=== PATIENT | female | born 1955 | race Caucasian/White ===

== ENCOUNTER → 2016-05-21 | Outpatient (CLI) | payer BC ==
[~2016-05-21] MED LIST: BYSTOLIC PO; CALCIUM1 CAP PO; DEXILANT PO; DUO-KAPS1 CAP PO; FLEXERIL5 MG PO; GAVISCON500 MG PO; NORCO 325 MG-51 TAB PO; PRILOSEC 20MG20 MG PO; ZOLOFT 50MG50 MG PO; ZOLOFT25 MG PO
== END ==
LOC: MC.RAD 07:20
DX: Z12.31 Encounter for screening mammogram for malignant neoplasm of breast (principal)

== ENCOUNTER → 2017-05-03 | Outpatient (CLI) | payer BC | LOC: MC.RAD 07:40 | DX: Z12.31 Encounter for screening mammogram for malignant neoplasm of breast (principal) ==

== ENCOUNTER 2018-05-15 08:59 | Outpatient (CLI) | payer BC ==
[~2018-05-15] VITALS: Ht 175.3 cm; Wt 63.3 kg
[~2018-05-15 08:59] MED LIST changes: +CALCIUM 600MG+D1 TAB PO; -CALCIUM1 CAP PO; +ZOLOFT 100MG100 MG PO; -ZOLOFT 50MG50 MG PO
[2018-05-15 09:58] VITALS: BP 164/80; PULSE 55; TEMP 98.5
[2018-05-15] MEDS ORDERED: OSTEO-BI-FLEX 21 TAB PO (10:17)
[2018-05-15] MEDS ORDERED: MELAT3MGTAB PO (10:17)
[2018-05-15] MEDS ORDERED: FLONASEALLERGY NS (10:18)
[2018-05-15] MEDS ORDERED: TEMOVATE0.05% TP (10:19)
[2018-05-15] MEDS ORDERED: ATROVENT NASAL15 ML NS (10:19)
[2018-05-15] MEDS ORDERED: ATIVAN 0.50.5 MG/TAB PO (10:20)
--- NOTE | 2018-05-15 10:32 | NUR ---
Pt to procedure,report to FELICIANO Correa.
[2018-05-15 11:54] VITALS: BP 148/87; PULSE 56
[2018-05-15 12:15] VITALS: BP 137/81; PULSE 59
[2018-05-15 12:45] VITALS: BP 135/74; PULSE 55
--- NOTE | 2018-05-15 13:14 | NUR ---
Discharge instructions given to pt.Pt verbalizes understanding.INT removed,catheter tip intact.Pt escorted out via wheelchair by this nurse.
== END 2018-05-15 13:16 | disposition home or self-care (01) ==
LOC: COL.CAR 08:59
DX: R55 Syncope and collapse (principal); Z88.8 Allergy status to other drugs, medicaments and biological substances; Z88.3 Allergy status to other anti-infective agents; Z87.820 Personal history of traumatic brain injury

== ENCOUNTER → 2018-05-18 | Outpatient (CLI) | payer BC ==
[~2018-05-18] MED LIST changes: +ATIVAN 0.50.5 MG/TAB PO; +ATROVENT NASAL15 ML NS; +FLONASEALLERGY NS; +MELAT3MGTAB PO; +OSTEO-BI-FLEX 21 TAB PO; +TEMOVATE0.05% TP
== END ==
LOC: MC.RAD 16:35
DX: Z12.31 Encounter for screening mammogram for malignant neoplasm of breast (principal)

== ENCOUNTER 2019-01-31 08:49 | Emergency (ER) | payer MEDICARE, OTHER ==
[2019-01-31 09:34] LABS: BASO % 0.3 % (0.0-2.0); EOS % 0.6 % (0-4.0); GRAN # 3.3 (1.4-6.5); GRAN % 53.4 % (42.2-75.2); HEMATOCRIT 42.3 % (37.0-47.0); HEMOGLOBIN 13.9 g/dl (12.5-16.0); LYMPH # 2.3 (1.2-3.4); MEAN CELL VOLUME 98 fl (80.0-100.0); MEAN CORPUSCULAR HEMOGLOBIN 32 pg (27.0-31.0); MEAN CORPUSCULAR HGB CONC 33 g/dl (33.0-37.0); MEAN PLATELET VOLUME 11.1 fl (7.4-10.4); MONO # 0.5 (0.1-0.6); MONO % 8.5 % (1.7-9.3); PLATELET COUNT 195 K/mm3 (130-400); RED BLOOD COUNT 4.34 M/mm3 (4.10-5.30); REDCELL DISTRIBUTION WIDTH-CV 12.5 % (11.5-14.5)
[2019-01-31 09:39] LABS: ALANINE AMINOTRANSFERASE 18 U/L (9-52); ALBUMIN 4.7 gm/dL (3.5-5.0); ALKALINE PHOSPHATASE 76 U/L (50-136); ANION GAP 11 mmol/L (7-16); AST,SGOT 41 U/L (15-37); BILIRUBIN,TOTAL 0.2 mg/dL (0.0-1.0); BLOOD UREA NITROGEN 27 mg/dL (7-17); CALCIUM 9.9 mg/dL (8.4-10.2); CARBON DIOXIDE 30 mmol/L (22-30); CHLORIDE 100 mmol/L (98-107); CREATININE, serum 0.62 (0.52-1.25); GLUCOSE 90 mg/dL (74-106); LIPASE 155 U/L (23-300); POTASSIUM 4.3 mmol/L (3.4-5.0); SODIUM 141 mmol/L (137-145); TOTAL PROTEIN 8.9 gm/dL (6.4-8.2)
[2019-01-31 10:02] LABS: TROPONIN-I < 0.012 ng/mL (0.000-0.035)
[2019-01-31 10:15] LABS: COLLECTION METHOD CLEAN CATCH
[2019-01-31 10:21] LABS: PH 7 (5-8); SQUAMOUS EPITHELIAL None Seen /hpf; URINE APPEARANCE Clear; URINE BACTERIA None Seen /hpf; URINE BILIRUBIN Negative (NEGATIVE); URINE BLOOD Negative (NEGATIVE); URINE COLOR Straw; URINE GLUCOSE Negative (NEGATIVE); URINE KETONE Negative (NEGATIVE); URINE LEUKOCYTE ESTERASE Negative (NEGATIVE); URINE NITRATE Negative (NEGATIVE); URINE PROTEIN(semi-quant) Negative (NEGATIVE); URINE RBC 0-2 /hpf; URINE UROBILINOGEN Negative (NEGATIVE)
[2019-01-31 13:41] VITALS: BP 138/71; PULSE 57; TEMP 98.4
== END 2019-01-31 13:42 | disposition home or self-care (01) ==
LOC: COL.ER 08:49
PROVIDERS: Emergency Medicine
DX: I10 Essential (primary) hypertension (principal); R53.81 Other malaise
CPT/HCPCS: J7030; Q9967

== ENCOUNTER → 2019-05-29 | Outpatient (CLI) | payer MEDICARE, OTHER | LOC: MC.RAD 10:20 | DX: Z12.31 Encounter for screening mammogram for malignant neoplasm of breast (principal) ==

== ENCOUNTER → 2020-06-09 | Outpatient (CLI) | payer MEDICARE | LOC: MC.RAD 07:45 | DX: Z12.31 Encounter for screening mammogram for malignant neoplasm of breast (principal) ==

== ENCOUNTER → 2020-09-02 | Outpatient (CLI) | payer MEDICARE, OTHER | LOC: COL.LAB 11:44 | DX: Z00.00 Encounter for general adult medical examination without abnormal findings (principal); K58.9 Irritable bowel syndrome, unspecified ==

== ENCOUNTER → 2020-11-27 | Outpatient (CLI) | payer MEDICARE, OTHER | LOC: COL.RAD 07:45 | DX: Z90.710 Acquired absence of both cervix and uterus (principal); R10.2 Pelvic and perineal pain ==

== ENCOUNTER → 2021-06-26 | Outpatient (CLI) | payer MEDICARE, OTHER | LOC: MC.RAD 08:05 | DX: Z12.31 Encounter for screening mammogram for malignant neoplasm of breast (principal) ==

== ENCOUNTER 2022-06-15 14:14 | Observation (INO) | payer MEDICARE, OTHER ==
[~2022-06-15] VITALS: Ht 175.3 cm; Wt 60.9 kg
[2022-06-15 14:56] LABS: BASO % 0.3 % (0.0-2.0); EOS # 0.1 K/mm3 (0.0-0.7); EOS % 0.7 % (0.0-4.0); GRAN # 3.7 K/mm3 (1.4-6.5); GRAN % 55.3 % (42.2-75.2); HEMATOCRIT 39.6 % (37.0-47.0); HEMOGLOBIN 12.9 g/dl (12.5-16.0); LYMPH # 2.6 K/mm3 (1.2-3.4); LYMPH % 37.9 % (20.0-51.0); MEAN CELL VOLUME 96 fl (80.0-100.0); MEAN CORPUSCULAR HEMOGLOBIN 31 pg (27-31); MEAN CORPUSCULAR HGB CONC 33 g/dl (33.0-37.0); MEAN PLATELET VOLUME 11.1 fl (7.4-10.4); MONO # 0.4 K/mm3 (0.1-0.6); MONO % 5.5 % (1.7-9.3); PLATELET COUNT 207 K/mm3 (130-400); RED BLOOD COUNT 4.12 M/mm3 (4.10-5.30); REDCELL DISTRIBUTION WIDTH-CV 12.2 % (11.5-14.5)
[2022-06-15 15:14] LABS: ALANINE AMINOTRANSFERASE 21 U/L (0-55); ALBUMIN 4.2 gm/dL (3.4-4.8); ALKALINE PHOSPHATASE 80 U/L (40-150); ANION GAP 11 mmol/L (7-16); AST,SGOT 26 U/L (5-34); BILIRUBIN,TOTAL 0.3 mg/dL (0.2-1.2); BLOOD UREA NITROGEN 21 mg/dL (10-20); CALCIUM 10.1 mg/dL (8.4-10.2); CARBON DIOXIDE 27 mmol/L (23-31); CHLORIDE 101 mmol/L (98-107); CREATININE, serum 0.86 mg/dL (0.57-1.11); GLUCOSE 113 mg/dL (70-99); POTASSIUM 4.6 mmol/L (3.5-4.5); SODIUM 139 mmol/L (136-145); TOTAL PROTEIN 8.3 gm/dL (6.2-8.1)
[2022-06-15 15:34] LABS: TROPONIN-I < 0.010 ng/mL (0.00-0.033); TSH w REFLEX 1.189 uIU/mL (0.350-4.940)
[2022-06-15 18:00] VITALS: BP 160/82
[2022-06-15] MEDS ORDERED: MICARDIS40 MG PO (19:25)
[2022-06-15] MEDS ORDERED: MICARDIS20 MG PO (19:25)
[2022-06-15 19:48] VITALS: BP 131/70; PULSE 70; TEMP 99
[2022-06-15 23:28] VITALS: BP 120/69; PULSE 53; TEMP 98.2
--- NOTE | 2022-06-16 00:06 | NUR ---
PATIENT CAME UP FROM ED AND DENIES CHEST PAIN, PALPITATIONS, OR SOB. PATIENT A&OX4 AND AMBULATORY. PATIENT STATED THAT SHE TOOK HER OWN BLOOD PRESSURE MEDICATION IN ED WHILE DR. MEEHAN WAS IN ROOM. STAR ELIZALDE NOTIFIED. PATIENT DENIES FURTHER QUESTIONS OR CONCERNS AT THIS TIME
[2022-06-16 05:04] VITALS: BP 139/74; PULSE 60; TEMP 98.5
[2022-06-16 06:29] LABS: BASO % 0.3 % (0.0-2.0); EOS % 0.5 % (0.0-4.0); GRAN # 3.1 K/mm3 (1.4-6.5); GRAN % 53.2 % (42.2-75.2); HEMATOCRIT 40.1 % (37.0-47.0); HEMOGLOBIN 13.4 g/dl (12.5-16.0); LYMPH # 2.2 K/mm3 (1.2-3.4); LYMPH % 38.6 % (20.0-51.0); MEAN CELL VOLUME 96 fl (80.0-100.0); MEAN CORPUSCULAR HEMOGLOBIN 32 pg (27-31); MEAN CORPUSCULAR HGB CONC 33 g/dl (33.0-37.0); MEAN PLATELET VOLUME 11.4 fl (7.4-10.4); MONO # 0.4 K/mm3 (0.1-0.6); MONO % 7.2 % (1.7-9.3); PLATELET COUNT 221 K/mm3 (130-400); RED BLOOD COUNT 4.19 M/mm3 (4.10-5.30); REDCELL DISTRIBUTION WIDTH-CV 12.3 % (11.5-14.5)
[2022-06-16 06:55] LABS: CREATININE, serum 0.84 mg/dL (0.57-1.11); MAGNESIUM 2.2 mg/dL (1.6-2.6); PHOSPHOROUS 3.6 mg/dL (2.3-4.7); POTASSIUM 3.7 mmol/L (3.5-4.5)
[2022-06-16 07:21] VITALS: BP 139/74; PULSE 60; TEMP 98.5
[2022-06-16 08:30] VITALS: BP 118/68; BP 139/78; PULSE 63; PULSE 64; TEMP 98.5
--- NOTE | 2022-06-16 09:28 | NUR ---
Business Education Teacher met with patient to discuss discharge planning. Patient lives in [place] with her , Amadou (ph#[phone]) and sees Dr. Kincaid for primary care. Patient obtains medications from [facility] in [place] with no difficulties. Patient uses a CPAP at home and no other DME. Patient is independent with ADLS and plans to return home at time of discharge. Patient stated her , Amadou and two of their children are designated as DPOA-HC. Discharge Plan: Home
--- NOTE | 2022-06-16 10:42 | NUR ---
Initial visit; Patient thanked for looking in on her and for offering Ashes. She declined since she will be going to [place] later for ashes. She was a very sweet person.
== END 2022-06-16 15:37 | disposition home or self-care (01) ==
LOC: COL.ER 14:14 → MEDICAL 15:55
PROVIDERS: Emergency Medicine; ADMIT Internal Medicine
DX: R68.89 Other general symptoms and signs (principal); R07.89 Other chest pain; I10 Essential (primary) hypertension; J30.2 Other seasonal allergic rhinitis; I07.1 Rheumatic tricuspid insufficiency; J90 Pleural effusion, not elsewhere classified; Z79.899 Other long term (current) drug therapy; Z86.16 Personal history of COVID-19; Z79.51 Long term (current) use of inhaled steroids
CPT/HCPCS: A9500; G0378; J1644

== ENCOUNTER → 2022-08-10 | Outpatient (CLI) | payer MEDICARE, OTHER ==
[~2022-08-10] MED LIST changes: +MICARDIS20 MG PO; +MICARDIS40 MG PO
== END ==
LOC: MC.RAD 09:49
DX: Z12.31 Encounter for screening mammogram for malignant neoplasm of breast (principal)